=== PATIENT | male | born 1980 | race Caucasian/White ===

== ENCOUNTER 2023-12-22 14:41 | Emergency (ER) | payer BC, SELFPAY ==
[2023-12-22 14:41] VITALS: BP 125/100; PULSE 98; RESP 16; TEMP 36.1; O2SAT 99; BMI 23.7
--- NOTE | 2023-12-22 15:21 | CT_ITS ---
STUDY: CT BRAIN WITHOUT CONTRAST REASON FOR EXAM: Male, 43 years old. injury RADIATION DOSAGE (If Supplied By Facility): CTDIvol = ( 44.99 ) mGy, DLP = ( 762.36 ) mGycm TECHNIQUE: Transaxial CT imaging of the brain was performed without administration of intravenous contrast material. Individualized dose optimization techniques were used for this CT. COMPARISON: No relevant priors. FINDINGS: Normal soft tissue structures. Normal calvarium. Normal size ventricles and extra-axial spaces for the patient''s age. Normal white matter tracts of the cerebral hemispheres. Normal basal ganglia and thalami. Normal brainstem. Normal cerebellum. There is no intracranial hemorrhage. There are no findings of an acute ischemic infarction. Normal visualized paranasal sinuses. CT/Brain/Head without Contrast IMPRESSION: Normal unenhanced CT scan of the brain. Electronically Signed: Bon Claros MD at 16:51 EDT ,
[2023-12-22 16:36] VITALS: BP 120/64; PULSE 61; RESP 18; O2SAT 100
[2023-12-22 16:53] VITALS: BP 123/74; PULSE 83; RESP 16; TEMP 36.7; O2SAT 100
--- NOTE | 2023-12-22 18:52 | EX.ED.GENINJ ---
HPI History of Present Illness Chief Complaint: Head Injury Informant: patient Onset/Context/Timing Onset: Today Narrative Narrative: 43-year-old male states that he went out to the yard and bent over and his dog a burner doodle came running and hit him right side of his head. He states he had a loss of consciousness. He notes headache and some nausea. No vomiting. He notes no seizure activity no arm or leg complaints. He is concerned about possible concussion. PFSH PFSH Home Medications NK 12/22/23 [History Last Taken Unknown] Allergy/AdvReac Type Severity Reaction Status Date / Time No Known Allergies Allergy Verified 12/22/23 14:43 Social History Smoking Status: Current every day smoker tobacco type: cigarettes ROS ROS ED Constitutional Constitutional ED: Denies chills, fever(s) or weight loss Eyes Eyes: Denies change in vision or diplopia ENT ENT ED: Denies ear pain, rhinorrhea or sore throat Cardiovascular Cardiovascular: Denies chest pain, orthopnea, palpitations or racing heartbeat Respiratory/Chest Respiratory/Chest: Denies cough, dyspnea or orthopnea Gastrointestinal Gastrointestinal: Reports nausea; Denies abdominal pain, diarrhea or vomiting Genitourinary Genitourinary ED: Denies dysuria, hematuria or urinary frequency Musculoskeletal Musculoskeletal: Denies arthralgias, back pain, myalgias or neck pain Integumentary Denies abscess or rash Neurologic Neurologic: Reports headache(s); Denies paresthesias or weakness Psychiatric Psychiatric: Denies anxiety, depression, suicidal ideation or suicidal thoughts Endocrine Endocrinology: Denies polydipsia, polyphagia or polyuria Allergic/Immunologic Allergic/Immunologic ED: Denies mouth swelling, tongue swelling or urticaria EXAM Physical Exam Narrative Exam Narrative: Well-appearing male sitting comfortably in the bed no acute distress. Const Vital Signs: 12/22/23 14:41 12/22/23 15:07 12/22/23 16:36 Temperature 96.9 F L Temperature Source Temporal Pulse Rate 98 61 Respiratory Rate 16 18 Respiratory Effort Normal Blood Pressure 125/100 H 120/64 Blood Pressure Mean 108 82 Pulse Ox 99 100 Oxygen Delivery Method Room Air Room Air 12/22/23 16:53 Temperature 98.1 F Temperature Source Pulse Rate 83 Respiratory Rate 16 Respiratory Effort Blood Pressure 123/74 H Blood Pressure Mean 90 Pulse Ox 100 Oxygen Delivery Method Positive well nourished and well developed General Appearance ED: well developed HEENT Reports normocephalic, head/scalp atraumatic and moist mucous membranes HEENT Narrative: I do not appreciate any raccoon eyes Flores sign hemotympanum or leakage of fluid from ears or nose. He has no difficulty opening or closing his mouth. Obvious dental trauma. No palpable bony depression. Eyes PERRL and EOMs intact bilaterally Neck no lymphadenopathy, supple and no JVD Resp normal respiratory effort and clear to auscultation bilaterally Cardio regular rate, regular rhythm and no murmurs GI normal to inspection, nondistended, normoactive bowel sounds and non-tender Palpation: soft Back/Spine no CVA tenderness and normal ROM Extremity normal to inspection General Extremety ED: Negative for edema General Extremity: Negative for edema Neuro oriented x3 and CN's II-XII intact bilaterally Sensorium / Orientation: alert Motor Exam: strength 5/5 throughout Psych mental status grossly normal Mood & Affect: Negative for depressed or tearful Skin no rashes or lesions noted and no wounds MDM MDM MDM Narrative Medical decision making narrative: CT the brain was negative for intracranial hemorrhage or fracture. Patient most likely has a mild concussion. Would recommend supportive care follow-up with primary care in 1 week. History & Record Review Discussion w/independent historian: Patient Radiography Diagnostic Testing: Clinical Impression(s) from Imaging Studies Brain CT 12/22/23 15:21 IMPRESSION: Normal unenhanced CT scan of the brain. Electronically Signed: Bon Claros MD at 16:51 EDT Reading Location ID and State: [facility] / [place] Tel , Service support , Discharge Plan Triage Chief Complaint: Head Injury ED Provider: Nahid Barba Dx/Rx/DC Orders Clinical Impression: Concussion, Head injury Instructions: ED Concussion Prescriptions: No Action NK Primary Care Provider: Nikhil Sloan Referrals: Nikhil Sloan MD [Primary Care Provider] - 1 Week Disposition Disposition: Home, Self Care Discharge Date/Time: 12/22/23 17:19
== END 2023-12-22 17:19 | disposition home or self-care (01) ==
PROVIDERS: Emergency Provider Emergency Medicine; PCP Family Medicine; Visit Provider Emergency Medicine
DX: S06.0X0A Concussion without loss of consciousness, initial encounter (principal); F17.210 Nicotine dependence, cigarettes, uncomplicated; W54.1XXA Struck by dog, initial encounter; Y92.096 Garden or yard of other non-institutional residence as the place of occurrence of the external cause
CPT/HCPCS: 70450; 99282

== ENCOUNTER 2024-02-16 08:51 | Emergency (ER) | payer BC, SELFPAY ==
[2024-02-16 08:52] VITALS: BP 101/77; PULSE 85; RESP 16; TEMP 36.4; O2SAT 100; BMI 23.6
--- NOTE | 2024-02-16 09:01 | RAD_ITS ---
INDICATION: fall EXAMINATION/TECHNIQUE: X-RAY - LEFT XR Elbow Min 3 Views COMPARISON: No relevant prior comparison study available FINDINGS: SOFT TISSUES: No soft tissue swelling or gas. No radiopaque foreign body. BONES/JOINTS: There is no displacement of the anterior or posterior fat pads. No acute fracture or subluxation. Normal alignment. Preservation of the joint space. No sclerotic or destructive changes observed. RAD/Elbow min 3 Views IMPRESSION: Within normal limits examination. Electronically Signed: Anushka Salas MD at 9:19 EDT ,
--- NOTE | 2024-02-16 09:01 | RAD_ITS ---
INDICATION: fall and pain EXAMINATION/TECHNIQUE: X-RAY - XR Spine Lumbar 2 or 3 Views COMPARISON: No relevant prior comparison study available FINDINGS: VERTEBRAE: Preserved vertebral body height. No fracture. No spondylolisthesis. Preservation of the normal lumbar lordosis. No significant facet arthropathy. DISCS: Disc spaces are maintained. INCLUDED ABDOMEN: Included bowel gas pattern is non-obstructive. RAD/Lumbar Spine 2 or 3 Views IMPRESSION: No evidence of lumbar spinal fracture or spondylolisthesis. Electronically Signed: Anushka Salas MD at 9:20 EDT ,
--- NOTE | 2024-02-16 09:02 | EDS_ITS ---
HPI HPI - Fall History of Present Illness Chief Complaint: Fall Informant: patient Occured/Mechanism Occurred: Days Usually ambulates: Without assistance Pain/Injury Pain Location: back and upper extremity Quality of Pain: Sharp, Dull and Aching Maximum Severity: Moderate Associated Symptoms Associated Symptoms: Negative for Parasthesias, Weakness, Loss of function, Inability to ambulate, Loss of consciousness or Amnesia Narrative Narrative: 43-year-old male history of of kidney masses but he says nonmalignant. On Friday he was going down steps his dog, got tangled up in his legs tripped him and he fell landing on his lower back and injuring his left elbow. Says he did not hit his head. No LOC. No other complaints. He is complaining of pain in his lower back and some bruising in his left elbow. Prior similar symptoms: No Recent Illness/Hospitalization: No PFSH PFSH Medical History no medical history no medical history Home Medications NK 12/22/23 [History Last Taken Unknown] Allergy/AdvReac Type Severity Reaction Status Date / Time No Known Allergies Allergy Verified 02/16/24 08:52 Social History Smoking Status: Current every day smoker tobacco type: cigarettes ROS ROS ED ROS Narrative Denies any recent illness. Review of Systems ROS Unobtainable: Denies due to encephalopathy Constitutional Constitutional ED: Denies chills or fever(s) Eyes Eyes: Denies blurry vision ENT ENT ED: Denies ear pain Cardiovascular Cardiovascular: Denies chest pain Respiratory/Chest Respiratory/Chest: Denies cough Gastrointestinal Gastrointestinal: Denies abdominal pain, constipation, diarrhea or vomiting Genitourinary Genitourinary ED: Denies dysuria or hematuria Musculoskeletal Musculoskeletal: Reports back pain; Denies arthralgias, myalgias or neck pain Integumentary Denies abscess or Abrasions Neurologic Neurologic: Denies headache(s) Psychiatric Psychiatric: Denies anxiety or depression Endocrine Endocrinology: Denies polydipsia, polyphagia or polyuria Hematologic/Lymphatic Hematologic/Lymphatic: Denies easy bleeding, easy bruising or lymphadenopathy Allergic/Immunologic Allergic/Immunologic ED: Denies mouth swelling, tongue swelling or urticaria EXAM Physical Exam Narrative Exam Narrative: Well-appearing 43-year-old male. Vital signs stable afebrile. Pulse ox 100% on room air no hypoxia. H EENT exam pupils round reactive light. No facial or scalp or head trauma. No hematomas or tenderness. No lacerations. C-spine nontender. Neck nontender full range of motion. Lungs clear to auscultation bilaterally. Equal symmetrical. Heart regular rhythm no murmur rate about 80. Chest wall and ribs nontender. Abdomen soft nontender. No peritoneal signs. No bruising. Pelvic girdle intact. Moving all 4 extremities. 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 Dorsi plantarflexion intact. Full range of motion both upper and lower extremities. Mild tenderness no significant swelling nor any deformity of the left elbow. He has full flexion extension of the elbow. Wrists are nontender. Back cervical and thoracic spine are nontender. Posterior ribs are nontender. His proximal and mid lumbar spine is tender and there is ecchymosis to the soft tissue on the right side of the lumbar spine. And mildly on the left. No gross bony deformity. He is able to stand without difficulty. When I entered the room he was placing the gown on and he was standing at bedside at that time. Neurologically is awake and alert with no focal motor deficits. GCS of 15. Const Vital Signs: 02/16/24 08:52 02/16/24 09:03 Temperature 97.6 F L Temperature Source Temporal Pulse Rate 85 Respiratory Rate 16 Respiratory Effort Normal Respiratory Depth Normal Respiratory Pattern Normal Blood Pressure 101/77 Blood Pressure Mean 85 Pulse Ox 100 Oxygen Delivery Method Room Air Positive well nourished and well developed; Negative for obese, cachectic, contractures or unkempt General Appearance ED: well developed; Negative for unkempt, cachectic or contractures Nutritional Appearance: Negative for cachectic or obese HEENT Reports normocephalic atraumatic; Negative for trauma, contusion, hematoma or tenderness Eyes PERRL and EOMs intact bilaterally General Eye ED: Negative for pale conjunctiva Neck full ROM, no lymphadenopathy and supple General: Negative for tenderness Chest Wall inspection of chest normal and palpation of chest normal Chest: Negative for other Resp normal respiratory effort, no retractions and clear to auscultation bilaterally Effort and Inspection: Negative for pain with movement Auscultation: Negative for rales, rhonchi, wheezes, diminished lung sounds or other Cardio regular rate, regular rhythm, S1 normal heart sound, S2 normal heart sound and no murmurs Rate: Negative for bradycardia or tachycardic Rhythm: Negative for abnormal rhythm Bruits: Negative for other GI non-tender, non-distended and no masses Inspection: Negative for abdominal distention Auscultation: normoactive bowel sounds Palpation: soft; Negative for guarding or rebound tenderness present Back/Spine no CVA tenderness Back/Spine Narrative: Lumbar spine tenderness. Paraspinal soft tissue tenderness and bruising. General Back: Negative for CVA tenderness, erythema, ecchymosis, swelling or tenderness Cervical Spine: Negative for cervical spine tenderness Lumbar Spine / Lower Back: lumbar spinal tenderness and paraspinal muscle tenderness Extremity Extremity Narrative: Mild tenderness left elbow. Full range of motion. No deformity or swelling. Neuro oriented x3, CN's II-XII intact bilaterally, moves all extremities, no focal motor deficits and no sensory deficits noted [place] Coma Scale: document GCS findings Spontaneous Obeys Commands Oriented 15 Sensorium / Orientation: alert, oriented to person, oriented to place and oriented to time; Negative for orientation impaired, confused, lethargic or stuporous Motor Exam: strength 5/5 throughout Psych mental status grossly normal and thought process normal Appearance: Negative for unkempt Attitude: No agitated Mood & Affect: Negative for depressed, anxious or tearful Skin General Skin Exam: Negative for other Lesions: no lesions Rashes: no rashes Trauma: Negative for abrasion, laceration or puncture MDM MDM MDM Narrative Medical decision making narrative: 43-year-old male was tripped by his dog and fell down several steps on Friday night injuring his lower back and left elbow. X-rays being obtained. No head injury. He does not need a CAT scan. Repeat exam patient is doing well at 9:25 AM. We went over his x-ray results. He will be discharged home. Elbow and back contusion. Ice. Motrin and Tylenol. Follow-up as needed. History & Record Review Discussion w/independent historian: Patient Additional record(s) reviewed:: Prior inpatient record, Prior outpatient record, Prior ED visit and Prior labs Radiography Diagnostic Testing: Clinical Impression(s) from Imaging Studies Elbow X-Ray 02/16/24 09:01 IMPRESSION: Within normal limits examination. Electronically Signed: Anushka Salas MD at 9:19 EDT , Lumbar Spine X-Ray 02/16/24 09:01 IMPRESSION: No evidence of lumbar spinal fracture or spondylolisthesis. Electronically Signed: Anushka Salas MD at 9:20 EDT , Left elbow x-ray, 3 views, interpreted by myself and the radiologist shows no acute fracture. No dislocation. I did review the film with the patient. Lumbar spine 3 views, interpreted by myself and radiologist shows no acute abnormality. No fracture. Reviewed with patient. Discharge Plan Triage Chief Complaint: Fall ED Provider: Santino Marie Dx/Rx/DC Orders Clinical Impression: Contusion of elbow, Lumbar contusion, Fall Instructions: ED Back Contusion Prescriptions: No Action NK Primary Care Provider: Nikhil Sloan Referrals: Nikhil Sloan MD [Primary Care Provider] - 1 Week if not improving Activity Restrictions/Additional Instructions: The x-rays of your back and elbow look good. No broken bones. Ice all sore areas. Motrin for pain and swelling. Tylenol for pain. This should progressively improve your to be sore for a while. If is not getting better follow-up with your doctor for for further evaluation. Disposition Disposition: Home, Self Care
[2024-02-16 09:41] VITALS: BP 101/77; PULSE 85; RESP 16; TEMP 36.4; O2SAT 100
== END 2024-02-16 09:42 | disposition home or self-care (01) ==
LOC: ED 09:37
PROVIDERS: Emergency Provider Emergency Medicine; PCP Family Medicine; Visit Provider Emergency Medicine
DX: S30.0XXA Contusion of lower back and pelvis, initial encounter (principal); F17.210 Nicotine dependence, cigarettes, uncomplicated; S50.02XA Contusion of left elbow, initial encounter; W10.9XXA Fall (on) (from) unspecified stairs and steps, initial encounter
CPT/HCPCS: 72100; 73080; 99282